=== PATIENT | male | born 1960 | race Caucasian/White ===

== ENCOUNTER → 2018-03-02 | Outpatient (CLI) | payer OTHER ==
[~2018-03-02] MED LIST: LIVALO4 MG PO; MINOCYCLINE
[2018-03-02 17:00] LABS: ABG HCO3 25 mmol/L (23-28); ABG PCO2 37 mmHg (41-51); ABG PH 7.44 (7.31-7.41); ABG PO2 79 mmHg (80-105)
== END ==
LOC: RESP 16:23
PROVIDERS: ATTEND Internal Medicine Interventional Cardiology
DX: R23.0 Cyanosis (principal)
CPT/HCPCS: 36415; 36600; 82805

== ENCOUNTER → 2018-11-04 | Outpatient (CLI) | payer OTHER ==
[~2018-11-04] MED LIST changes: +ASPIR 8181 MG PO; +CRESTOR10 MG; +CRESTOR20 MG PO; +EFFIENT10 MG PO; +IOPAMIDOL 370 MG/ML 200 ML INFUS..BTL INJ ONE; +METOPROLOL TART25 MG PO; +PLAVIX75 MG PO; +SODIUM CHLORIDE 0.9% 50ML 50 ML ONE; +TESTOSTERO200 MG/1 M; +VIAGRA100 MG
[2018-11-04 15:38] LABS: BLOOD UREA NITROGEN 10 mg/dL (7-26); BUN/CREATININE RATIO 13 (6-25); CREATININE, SERUM 0.77 mg/dL (0.72-1.25); EST GLOMERULAR FILTRATION RATE > 60 ML/MIN (60-)
--- NOTE | 2018-11-05 07:41 | Diagnostic Imaging Report ---
EXAM: CT Abdomen and Pelvis WITH contrast INDICATION: ^[id number] ^[id number] ^VENTRAL HERNIA COMPARISON: CT dated 08/24/2014 TECHNIQUE: Abdomen and pelvis were scanned utilizing a multidetector helical scanner from the lung base to the pubic symphysis after administration of IV contrast. Coronal and sagittal reformations were obtained. Dose modulation, iterative reconstruction, and/or weight based adjustment of the mA/kV was utilized to reduce the radiation dose to as low as reasonably achievable. Routine protocol was performed. Scan was performed when during portal venous phase. IV CONTRAST: 100 mL of Isovue-370 ORAL CONTRAST: Water COMPLICATIONS: None RADIATION DOSE: Total DLP: 727.97 mGy*cm Estimated effective dose: (DLP x 0.015 x size factor) mSv CTDIvol has been reviewed. It is below the limits set by the Radiation Protocol Committee (RPC). FINDINGS: LINES and TUBES: None. LOWER THORAX: Small left Bochdalek hernia, unchanged. HEPATOBILIARY: Again seen several hepatic hypodensities which are too small to characterize and have not significantly changed from prior CT in 2013, probably cysts. The largest is in left hepatic lobe measuring 1.2 cm. No biliary ductal dilation. GALLBLADDER: No radio-opaque stones or sludge. No wall thickening. SPLEEN: No splenomegaly. PANCREAS: No focal masses or ductal dilatation. ADRENALS: No adrenal nodules KIDNEYS/URETERS: Kidneys enhance symmetrically. No hydronephrosis. No cystic or solid mass lesions. Lobulated renal contours. No stones. GI TRACT: No abnormal distention, wall thickening, or evidence of bowel obstruction. Appendix is normal. Small hiatal hernia. PELVIC ORGANS/BLADDER: Prostate calcifications. Mild posterior wall bladder wall thickening which is unchanged since prior CT (series 2, image 79). LYMPH NODES: No lymphadenopathy. VESSELS: Unremarkable. PERITONEUM / RETROPERITONEUM: No free air or fluid. BONES: Unremarkable. SOFT TISSUES: Unremarkable. Mild diastasis of the rectus muscles without evidence of herniation. IMPRESSION: 1. No acute inflammatory process in the abdomen/pelvis. 2. No evidence of ventral hernia. 3. Redemonstration of several hepatic hypodensities which are too small to characterize and are probably cysts since they have been relatively stable since 2014. If clinically indicated, this can be confirmed with right upper quadrant ultrasound. Signed by: Dr. Kwame Butler MD on 11/05/2018 7:37 AM
== END ==
LOC: CT 14:34
PROVIDERS: ATTEND Family Medicine
DX: K43.9 Ventral hernia without obstruction or gangrene (principal)
CPT/HCPCS: 36415; 74177; 82565; 84520; Q9967

== ENCOUNTER 2018-11-29 10:35 | Inpatient (IN) | payer OTHER ==
[~2018-11-29] VITALS: Ht 172.7 cm; Wt 96.6 kg
[2018-11-29] VITALS (8 sets, daily range): BP systolic 111–135; BP diastolic 85–96
[~2018-11-29 10:35] MED LIST changes: -IOPAMIDOL 370 MG/ML 200 ML INFUS..BTL INJ ONE; -SODIUM CHLORIDE 0.9% 50ML 50 ML ONE
--- NOTE | 2018-11-29 11:15 | NUR ---
X-RAY AT BEDSIDE FOR CXR.
--- NOTE | 2018-11-29 11:25 | NUR ---
DR. NORTON HERE TO CLARIBEL PT.
--- NOTE | 2018-11-29 11:33 | Diagnostic Imaging Report ---
Examination: Single AP view of the chest. COMPARISON: 04/24/2018 INDICATION: Chest pain DISCUSSION: The lungs are well-inflated. No focal airspace consolidation, pleural effusion, or pneumothorax. Stable enlargement of the cardiomediastinal silhouette, accentuated by AP technique. No pulmonary edema. No acute osseous abnormality. IMPRESSION: No acute cardiopulmonary abnormality. Stable enlargement of the cardiac silhouette without vascular decompensation. Signed by: Dr. Jacoby Dickens M.D. on 11/29/2018 11:30 AM
[2018-11-29 11:43] LABS: BASOPHILS % 0.6 % (0.0-1.0); EOSINOPHILS # (AUTO) 0.2 (0.0-0.4); EOSINOPHILS % 2.8 % (0.0-6.0); HEMATOCRIT 51.9 % (38.2-49.6); HEMOGLOBIN 17.2 g/dL (14.0-18.0); LYMPHOCYTES # (AUTO) 1.3 (1.0-3.2); LYMPHOCYTES % 19.1 % (18.0-39.1); MEAN CORPUSCULAR HEMOGLOBIN 29.3 pg (28-32); MEAN CORPUSCULAR HGB CONC 33.1 g/dL (31-35); MEAN CORPUSCULAR VOLUME 88.3 fL (81-99); MONOCYTES # (AUTO) 0.7 (0.2-0.8); MONOCYTES % 10.7 % (4.4-11.3); NEUTROPHILS # (AUTO) 4.6 (2.1-6.9); NEUTROPHILS % 66.4 % (38.7-80.0); PLATELET COUNT 212 x10e3/uL (140-360); RED BLOOD COUNT 5.88 x10e6/uL (4.3-5.7); RED CELL DISTRIBUTION WIDTH 13.2 % (11.7-14.4)
[2018-11-29] MEDS ORDERED: NIFEDIPINE 10 MG CAP PO STA (11:49)
[2018-11-29 12:02] LABS: ALANINE AMINOTRANSFERASE 21 IU/L (0-55); ALBUMIN 3.7 g/dL (3.5-5.0); ALBUMIN/GLOBULIN RATIO 1.4 (0.8-2.0); ALKALINE PHOSPHATASE 59 IU/L (40-150); BLOOD UREA NITROGEN 15 mg/dL (7-26); BUN/CREATININE RATIO 12 (6-25); CALCIUM 8.6 mg/dL (8.4-10.2); CARBON DIOXIDE 22 mmol/L (22-29); CHLORIDE 107 mmol/L (98-107); CREATINE KINASE 369 IU/L (30-200); CREATININE, SERUM 1.23 mg/dL (0.72-1.25); EST GLOMERULAR FILTRATION RATE > 60 ML/MIN (60-); GLUCOSE 97 mg/dL (74-118); SODIUM 137 mmol/L (136-145)
[2018-11-29 12:11] LABS: INR 0.9
[2018-11-29] MEDS ORDERED: SODIUM CHLORIDE FLUSH 10 ML SYR INJ PRN (12:15)
[2018-11-29] MEDS ORDERED: ASPIRIN 81 MG CHEW TAB PO ONE (12:15)
[2018-11-29] MEDS ORDERED: NITROGLYCERIN 0.4 MG SUBL SL PRN (12:15)
[2018-11-29] MEDS: SODIUM CHLORIDE 0.9% 1000ML 1,000 ML IV SCH ×2 (12:22→21:49)
--- NOTE | 2018-11-29 12:25 | NUR ---
CONSENT FORM COMPLETED AND ATTATCHED TO CHART; CORK MOLDER AT BEDSIDE TO PREP PT AT THIS TIME.
--- NOTE | 2018-11-29 13:30 | Diagnostic Imaging Report ---
EXAMINATION: CT scan of the chest with contrast. TECHNIQUE: Spiral CT images of the chest were performed from the lung apices to the level of the adrenal glands after the intravenous administration of 100 cc of Isovue-370. Coronal and sagittal reformatted images were obtained. COMPARISON: Chest radiograph same day CLINICAL HISTORY:Chest and neck pain, questionable facial swelling, concern for venous obstruction DISCUSSION: LINES/TUBES: None. LUNGS AND AIRWAYS: 2 mm nodule along the right minor fissure. Minimal reticular opacity in the dependent portions of the lower lobes compatible with subsegmental atelectasis. Lungs are otherwise clear. No consolidations, bronchiectasis, or fibrosis. Trachea, mainstem bronchi, and central lobar and segmental bronchi are patent without filling defect. PLEURA: No pneumothorax or pleural effusions. HEART AND MEDIASTINUM: Visualized portions of the thyroid gland are normal There is no ectasia or aneurysmal dilatation of the thoracic aorta. Great vessel origins are patent and of normal caliber and configuration. Of note, the bilateral subclavian and axillary arteries are patent to the extent included on the scan field. Evaluation of the right subclavian vein is limited secondary to extensive beam hardening artifact from its lateral upper extremity contrast infusion. The left subclavian vein and brachiocephalic vein are widely patent. The pulmonary outflow tract is of normal caliber. This study was not optimized for detection of pulmonary embolic disease; however, no filling defects within the main pulmonary artery, right and left pulmonary arteries, and their lobar branches. Left anterior descending coronary artery stents. The superior vena cava is widely patent. No axillary, hilar, or mediastinal lymphadenopathy. LYMPH NODES: No axillary, hilar, or mediastinal lymphadenopathy. Prominent epicardial fat. ABDOMEN: There are multiple hypoattenuating circular lesions in the liver, the largest of which lies in segment 2 and measures 1.2 cm. Average internal attenuation is 15 Hounsfield units compatible with a simple cyst. Remaining lesions are too small to further characterize though statistically likely represent additional small cysts. The visualized portions of the spleen, pancreas, and adrenal glands are unremarkable. Small lipoma in the left diaphragmatic wilfrid. BONES AND SOFT TISSUES: No acute osseous abnormalities. No osseous destructive lesions. Mild bilateral gynecomastia. Otherwise no focal soft tissue abnormalities IMPRESSION: No acute thoracic CT abnormalities. No evidence of thoracic venous obstruction or significant great vessel arterial stenosis. 2 mm nodule along the right minor fissure may represent an intrapulmonary lymph node. Follow-up CT scan of the chest without contrast may be obtained in one year if the patient is at high risk of malignancy per Fleischner Society 2017 guidelines. Signed by: Dr. Jacoby Dickens M.D. on 11/29/2018 1:26 PM
--- NOTE | 2018-11-29 13:30 | NUR ---
ECHO AT BEDSIDE AT THIS TIME
--- NOTE | 2018-11-29 14:05 | NUR ---
PT UPDATED ON PLAN OF CARE, VERBALIZED UNDERSTANDING, NO DISTRESS NOTED AT THIS TIME.
[2018-11-29] MEDS ORDERED: IOPAMIDOL 370 MG/ML 200 ML INFUS..BTL INJ ONE ×2 (14:47→16:21)
[2018-11-29] MEDS ORDERED: SODIUM CHLORIDE 0.9% 50ML 50 ML ONE (14:47)
[2018-11-29] MEDS ORDERED: HEPARIN SOD (PORCINE) 1000 UNIT/ML 30ML ONE (16:20)
[2018-11-29] MEDS ORDERED: VERAPAMIL HCL 2.5 MG/ML 2 ML VIAL ONE (16:20)
[2018-11-29] MEDS ORDERED: NITROGLYCERIN/D5W 200 MCG/ML 250 ML ONE (16:21)
[2018-11-29] MEDS ORDERED: HEPARIN SOD/SOD CHLORIDE 2,000 ML ONE (16:21)
[2018-11-29] MEDS ORDERED: FENTANYL CITRATE/PF 100MCG/2 ML INJ ONE (16:21)
[2018-11-29] MEDS ORDERED: LIDOCAINE HCL 1% LOCAL INJ 20 ML VIAL ONE (16:21)
[2018-11-29] MEDS ORDERED: MIDAZOLAM HCL 2 MG/2 ML VIAL ONE ×3 (16:21→16:44)
--- NOTE | 2018-11-29 16:28 | NUR ---
REPORT GIVEN TO SERGIO SILVA COSMETOLOGY INSTRUCTOR NURSE, PT IS EN ROUTE TO COSMETOLOGY INSTRUCTOR AT THIS TIME; V/S/S CURRENTLY.
--- NOTE | 2018-11-29 17:03 | NUR ---
Received patient s/p C. Vital signs stable. TR Band noted to right radial. No hematoma or bleeding present. Patient awaiting removal of TR band prior to transfer to floor. at bedside. Food tray ordered.
--- NOTE | 2018-11-29 17:10 | NUR ---
Patient c/o pain to neck. Patient rates pain at "6" on a scale of 0-10. Medicated patient with morphine 4mh IV as ordered.
[2018-11-29] MEDS ORDERED: MORPHINE SULFATE INJ 4 MG/ML INJ ONE (17:21)
--- NOTE | 2018-11-29 17:25 | NUR ---
Patient mnow rates pain at "3" on a scale of 0-10.
--- NOTE | 2018-11-29 17:43 | NUR ---
Removed 3cc's of air from right wrist TR band. No bleeding or hematoma noted. Vital signs stable.
--- NOTE | 2018-11-29 17:57 | NUR ---
Removed 3 cc's of air from right wrist TR Band. No bleeding or hematoma noted. Vitals stable.
--- NOTE | 2018-11-29 18:10 | NUR ---
Remainder of air removed from right radial TR Band. Sterile dressing applied. No bleeding or hematoma noted. Patient awaiting transport to room.
--- NOTE | 2018-11-29 18:24 | NUR ---
report received from Berna. Patient arrived on floor via wheelchair. Alert and oriented and in no distress. Call peralta within reach and bed in lowest position.
--- NOTE | 2018-11-29 18:24 | NUR ---
Report called to SERGIO Flores. Patient to admit to room 186. Patient transported to floor via stretcher.
--- NOTE | 2018-11-29 18:55 | NUR ---
report given to city weighmaster nurse, patient aware of change. Patient in no distress and call peralta within reach.
[2018-11-29 20:09] LABS: CREATINE KINASE MB 2.8 ng/mL (0-5.0)
[2018-11-29] MEDS ORDERED: HYDROCODONE/APAP 7.5MG-325MG 1 EA TAB PO PRN (22:00)
[2018-11-30] VITALS: BP 128/77
[2018-11-30 04:00] VITALS: BP 135/85
[2018-11-30 05:35] LABS: CREATINE KINASE MB 2.1 ng/mL (0-5.0)
[2018-11-30 06:21] LABS: CHOL/HDL RATIO 4.7 (3.9-4.7)
[2018-11-30] MEDS: SODIUM CHLORIDE 0.9% 1000ML 1,000 ML IV SCH (08:00)
[2018-11-30 08:44] VITALS: BP 133/92
--- NOTE | 2018-11-30 08:53 | NUR ---
SOCIAL WORK INITIAL ASSESSMENT Bone Char Puller to bedside to discuss plan of care with patient/family. CM/SW role and care transitions discussed. Anticipated discharge plan discussed along with duration of care. CM/SW discussed patients right to make decisions in care. CM/SW work hours given. Patient lives: IN OWN HOUSE WITH FAMILY Admit/Transfer: VIA ED FROM HOME POA/Emergency contact: ABIMAEL [phone] Current/Previous Home Health: NONE PCP/Follow-up Care: [facility] Current/Previous DME: NONE Other Services: NONE Employment Status: NONE Areas of Concerns: NONE Referral Needs: NONE Education Needs: NONE IMM/RAMOS given and signed (if applicable): NONE Goal for discharge: RETURN HOME INDEPENDENTLY CM/SW left business card at the bedside with contact information. Name and number was also written on the patients whiteboard. Patient verbalized understanding of discussion. CM will follow-up with ongoing discharge and transition of care needs.
[2018-11-30 09:47] VITALS: BP 133/92
[2018-11-30 12:00] VITALS: BP 146/98
--- NOTE | 2018-11-30 12:21 | Diagnostic Imaging Report ---
History: Neck and bilateral jaw pain Comparison studies: None Technique: Sagittal T1, T2 and IR, axial T2, T1 and axial gradient echo Intravenous contrast: None Findings: Alignment: Straightened cervical curvature No scoliosis. Cervicomedullary junction: No abnormalities. Patent foramen magnum. Soft tissues: No T2 hyperintense inflammatory changes. Spinal cord: Normal in size and signal from the foramen magnum through T1. Vertebrae: No fractures, infection or neoplasm. Degenerative changes: C2-C3: Patent canal and foramina. No disc herniation. C3-C4: Patent canal. No disc herniation. Mild right foraminal stenosis due to uncovertebral arthrosis. C4-C5: Mildly degenerated disc. Small asymmetric right disc osteophyte complex and uncovertebral arthrosis and mild/moderate right and mild left left foraminal stenosis. C5-C6: Mildly degenerated disc. Small disc osteophyte complex and uncovertebral arthrosis with moderate left and mild right foraminal stenosis. C6-C7: Mildly degenerated disc. Asymmetric left disc osteophyte complex and uncovertebral arthrosis with severe left foraminal stenosis, moderate right foraminal stenosis and mild canal stenosis. C7-T1: Patent canal and foramina. No disc herniation. Incidental findings: Circumscribed 8 mm T2 hyperintensity which extends from the uvula, possibly retention cyst or secretions which could be correlated with direct visualization. Included flow voids of the carotid and vertebral arteries are maintained. IMPRESSION: 1. Mild multilevel disc degeneration. 2. Mild degenerative canal stenosis at C6-C7. 3. Multilevel degenerative foraminal stenosis (mild/moderate right at C4-C5, moderate left at C5-C6 and severe left and moderate right at C6-C7). Signed by: Dr. Jacoby Chua M.D. on 11/30/2018 12:17 PM
--- NOTE | 2018-11-30 13:41 | NUR ---
patient refusing to put heart monitor back on. Dr Miller paged to give MRI results. awaiting return call for discharge order.
--- NOTE | 2018-11-30 14:12 | Operative Report ---
DATE OF PROCEDURE: November 29, 2018 INDICATIONS: Coronary artery disease, unstable angina/loa-ZF-pqkiltl elevation myocardial infarction. PROCEDURES PERFORMED 1. Left heart catheterization. 2. Selective coronary angiography. 3. Left ventriculography. 4. Deployment of right wrist transradial band. COMPLICATIONS: None. RECOMMENDATIONS: Medical therapy. Access obtained in the right radial artery. A 5-Hebrew sheath was placed. Diagnostic coronary angiogram revealed a widely patent stent in the left anterior descending artery. Remaining vessel had mild disease. Obtuse marginal 50% lesions in both obtuse margin branches. Mild coronary artery disease in the right coronary artery. LV ejection fraction 70%. LV end-diastolic pressure of 10. No gradient across the aortic valve on pullback. No intervention was deemed necessary. Guide sheath removed. TR band applied. Patient observed in the hospital overnight. Job#: [id number] ASHIA
--- NOTE | 2018-12-02 10:09 | Consultation ---
DATE OF CONSULTATION: November 29, 2018 CARDIAC CONSULTATION REASON FOR CONSULTATION: Chest pain. Mr. Kapadia is a 57-year-old gentleman with a history of coronary artery disease, status post LAD stent placement last year. He had complete relief of his anginal symptoms following stent placement. However, this morning he continues he woke up with chest pain and continued to have persistent pain all morning. EKG shows subtle S/T changes. Chest x-ray is normal. Treadmill stress test in the office was consistent with ischemia. PAST MEDICAL HISTORY: Coronary artery disease, hypertension, hyperlipidemia. SOCIAL HISTORY: Patient does not smoke or drink drug. ALLERGIES: INCLUDE LACTULOSE. REVIEW OF SYSTEMS: Is negative except as dictated in the history of present illness. PHYSICAL EXAMINATION VITALS: Afebrile, heart rate 91, blood pressure 144/106, O2 sats 97%. CARDIOVASCULAR: Regular rhythm. A S4 gallop. No murmurs. LUNGS: Clear to auscultation bilaterally. ABDOMEN: Soft. EXTREMITIES: Pedal pulses are 2+. Chemistries including cardiac enzymes are pending. Hemoglobin is 17.2. Chest x-ray shows no acute abnormalities. EKG and stress test was reviewed. ASSESSMENT: Kaj-IQ-gojommy elevation myocardial infarction. RECOMMENDATIONS: Left heart catheterization, coronary angiography, as well as possible percutaneous coronary intervention to be performed. Risks, benefits and alternatives of the procedure have been discussed with the patient. He is agreeable for the same. He will also need imaging for thoracic outlet syndrome. This also was discussed with the patient. I thank Dr. Newell for this consultation. Job#: [id number] MA
== END 2018-11-30 14:39 | disposition home or self-care (01) | DRG 282 ==
LOC: ER 10:35 → ERHOLD 12:41 → IMCU 18:12
PROVIDERS: ADMIT Internal Medicine Interventional Cardiology; ATTEND Internal Medicine Interventional Cardiology
PROC: 4A023N7 Measurement of Cardiac Sampling and Pressure, Left Heart, Percutaneous Approach (ICD-10-PCS; principal; 2018-11-29)
PROC: B2111ZZ Fluoroscopy of Multiple Coronary Arteries using Low Osmolar Contrast (ICD-10-PCS; 2018-11-29)
PROC: B2151ZZ Fluoroscopy of Left Heart using Low Osmolar Contrast (ICD-10-PCS; 2018-11-29)
DX: I21.4 Non-ST elevation (NSTEMI) myocardial infarction (principal); I25.110 Atherosclerotic heart disease of native coronary artery with unstable angina pectoris; Z95.5 Presence of coronary angioplasty implant and graft; E78.5 Hyperlipidemia, unspecified
CPT/HCPCS: 36415; 71045; 71260; 72141; 80053; 80061; 82550; 82553; 84484; 85025; 85610; 85730; 93005; 93306; 93458; 99285; C1887; J1644; J2001; J2250; J2270; J7030; Q9967

== ENCOUNTER → 2020-09-24 | Day surgery (SDC) | payer OTHER, SELFPAY ==
[~2020-09-24] MED LIST changes: +ARMOUR THYROID60 MG PO; +FENTANYL CITRATE/PF 100MCG/2 ML INJ ONE; +HYOSCYAMINE 0.125 MG TAB ONE; +LIDOCAINE HCL 2% LOCAL INJ 5 ML SDV VIAL INJ ONE; +MIDAZOLAM HCL 2 MG/2 ML VIAL ONE; +PROPOFOL IV EMULSION 10 MG/ML 20 ML VIAL ONE; +ZETIA10 MG PO
[2020-09-24 10:33] LABS: BASOPHILS # (AUTO) 0.1 (0.0-0.1); BASOPHILS % 0.7 % (0.0-1.0); EOSINOPHILS # (AUTO) 0.1 (0.0-0.4); HEMATOCRIT 53.6 % (38.2-49.6); HEMOGLOBIN 17.2 g/dL (14.0-18.0); LYMPHOCYTES # (AUTO) 1.4 (1.0-3.2); LYMPHOCYTES % 19.9 % (18.0-39.1); MEAN CORPUSCULAR HEMOGLOBIN 27.7 pg (28-32); MEAN CORPUSCULAR HGB CONC 32.1 g/dL (31-35); MEAN CORPUSCULAR VOLUME 86.2 fL (81-99); MONOCYTES # (AUTO) 0.9 (0.2-0.8); MONOCYTES % 12.2 % (4.4-11.3); NEUTROPHILS # (AUTO) 4.5 (2.1-6.9); NEUTROPHILS % 64.8 % (38.7-80.0); PLATELET COUNT 208 x10e3/uL (140-360); RED BLOOD COUNT 6.22 x10e6/uL (4.3-5.7); RED CELL DISTRIBUTION WIDTH 13.7 % (11.7-14.4)
== END | disposition home or self-care (01) ==
LOC: OR 09:37
PROVIDERS: ATTEND Internal Medicine Gastroenterology
DX: K21.00 Gastro-esophageal reflux disease with esophagitis, without bleeding (principal); K44.9 Diaphragmatic hernia without obstruction or gangrene; K21.9 Gastro-esophageal reflux disease without esophagitis; E78.5 Hyperlipidemia, unspecified; I25.10 Atherosclerotic heart disease of native coronary artery without angina pectoris; Z91.018 Allergy to other foods; Z01.812 Encounter for preprocedural laboratory examination; Z20.828 Contact with and (suspected) exposure to other viral communicable diseases; K20.80 Other esophagitis without bleeding; K29.70 Gastritis, unspecified, without bleeding; K29.80 Duodenitis without bleeding
CPT/HCPCS: 36415; 43239; 85025; J2001; J2250; J2704; J3010; U0002; 43235; 45378; 45380; 45384; 45385

== ENCOUNTER 2020-12-08 03:40 | Observation (INO) | payer OTHER ==
[~2020-12-08] VITALS: Ht 172.7 cm; Wt 86.2 kg
[~2020-12-08 03:40] MED LIST changes: -FENTANYL CITRATE/PF 100MCG/2 ML INJ ONE; -HYOSCYAMINE 0.125 MG TAB ONE; -LIDOCAINE HCL 2% LOCAL INJ 5 ML SDV VIAL INJ ONE; -MIDAZOLAM HCL 2 MG/2 ML VIAL ONE; -PROPOFOL IV EMULSION 10 MG/ML 20 ML VIAL ONE; -TESTOSTERO200 MG/1 M; +TESTOSTERO200 MG/1 M IM
[2020-12-08] MEDS ORDERED: MORPHINE SULFATE INJ 4 MG/ML INJ 1ML IV STA (04:27)
[2020-12-08] MEDS ORDERED: ONDANSETRON HCL INJ 2MG/ML 2ML 2 MG/ML VIAL IV STA (04:27)
[2020-12-08 04:36] LABS: BASOPHILS # (AUTO) 0.1 (0.0-0.1); BASOPHILS % 0.6 % (0.0-1.0); EOSINOPHILS # (AUTO) 0.2 (0.0-0.4); EOSINOPHILS % 2.6 % (0.0-6.0); HEMATOCRIT 44.5 % (38.2-49.6); HEMOGLOBIN 14.3 g/dL (14.0-18.0); LYMPHOCYTES # (AUTO) 1.4 (1.0-3.2); LYMPHOCYTES % 16.6 % (18.0-39.1); MEAN CORPUSCULAR HEMOGLOBIN 28.7 pg (28-32); MEAN CORPUSCULAR HGB CONC 32.1 g/dL (31-35); MEAN CORPUSCULAR VOLUME 89.2 fL (81-99); MONOCYTES # (AUTO) 0.7 (0.2-0.8); MONOCYTES % 7.9 % (4.4-11.3); NEUTROPHILS # (AUTO) 6.2 (2.1-6.9); PLATELET COUNT 166 x10e3/uL (140-360); RED BLOOD COUNT 4.99 x10e6/uL (4.3-5.7); RED CELL DISTRIBUTION WIDTH 16.8 % (11.7-14.4)
[2020-12-08 04:42] LABS: INR 0.89; PROTHROMBIN TIME 12.6 seconds (11.9-14.5)
[2020-12-08 04:43] LABS: PARTIAL THROMBOPLASTIN TIME 27.9 seconds (23.8-35.5)
[2020-12-08 04:51] LABS: ALANINE AMINOTRANSFERASE 20 IU/L (0-55); ALBUMIN 3.5 g/dL (3.5-5.0); ALBUMIN/GLOBULIN RATIO 1.1 (0.8-2.0); ALKALINE PHOSPHATASE 67 IU/L (40-150); ANION GAP 14.6 mmol/L (8-16); BLOOD UREA NITROGEN 15 mg/dL (7-26); BUN/CREATININE RATIO 14 (6-25); CARBON DIOXIDE 25 mmol/L (22-29); CHLORIDE 105 mmol/L (98-107); CREATINE KINASE 63 IU/L (30-200); CREATININE, SERUM 1.05 mg/dL (0.72-1.25); EST GLOMERULAR FILTRATION RATE > 60 ML/MIN (60-); GLUCOSE 119 mg/dL (74-118); POTASSIUM 3.6 mmol/L (3.5-5.1); SODIUM 141 mmol/L (136-145)
[2020-12-08] MEDS ORDERED: ASPIRIN 81 MG CHEW TAB PO ONE (05:15)
[2020-12-08] MEDS ORDERED: SODIUM CHLORIDE 0.9% 50ML 0 ML ONE (05:21)
[2020-12-08] MEDS ORDERED: IOPAMIDOL 370 MG/ML 200 ML INFUS..BTL INJ ONE (05:22)
[2020-12-08] MEDS ORDERED: SODIUM CHLORIDE 0.9% 100 ML ONE (05:24)
[2020-12-08 13:12] LABS: CREATINE KINASE MB 0.8 ng/mL (0-5.0)
[2020-12-08] MEDS ORDERED: METOPROLOL SUCC25 MG PO (16:07)
[2020-12-08 20:00] VITALS: BP 108/73
[2020-12-08 21:00] VITALS: BP 108/73
[2020-12-08] MEDS ORDERED: METOPROLOL SUCCINATE 25 MG TAB XL PO SCH (21:00)
[2020-12-08 23:58] LABS: CREATINE KINASE 47 IU/L (30-200)
[2020-12-09] VITALS: BP 99/72
[2020-12-09 04:00] VITALS: BP 97/67
[2020-12-09 06:01] LABS: BASOPHILS # (AUTO) 0.1 (0.0-0.1); BASOPHILS % 0.8 % (0.0-1.0); EOSINOPHILS # (AUTO) 0.3 (0.0-0.4); EOSINOPHILS % 4.1 % (0.0-6.0); HEMATOCRIT 44.5 % (38.2-49.6); HEMOGLOBIN 14.3 g/dL (14.0-18.0); LYMPHOCYTES # (AUTO) 1.5 (1.0-3.2); LYMPHOCYTES % 24.1 % (18.0-39.1); MEAN CORPUSCULAR HEMOGLOBIN 29.2 pg (28-32); MEAN CORPUSCULAR HGB CONC 32.1 g/dL (31-35); MONOCYTES # (AUTO) 0.6 (0.2-0.8); NEUTROPHILS # (AUTO) 3.7 (2.1-6.9); NEUTROPHILS % 60.3 % (38.7-80.0); PLATELET COUNT 130 x10e3/uL (140-360); RED BLOOD COUNT 4.89 x10e6/uL (4.3-5.7); RED CELL DISTRIBUTION WIDTH 16.8 % (11.7-14.4)
[2020-12-09 06:29] LABS: ALANINE AMINOTRANSFERASE 16 IU/L (0-55); ALBUMIN 3.2 g/dL (3.5-5.0); ALBUMIN/GLOBULIN RATIO 1.1 (0.8-2.0); ALKALINE PHOSPHATASE 58 IU/L (40-150); ANION GAP 15.2 mmol/L (8-16); BLOOD UREA NITROGEN 14 mg/dL (7-26); BUN/CREATININE RATIO 15 (6-25); CALCIUM 8.6 mg/dL (8.4-10.2); CARBON DIOXIDE 21 mmol/L (22-29); CHLORIDE 109 mmol/L (98-107); CREATININE, SERUM 0.91 mg/dL (0.72-1.25); EST GLOMERULAR FILTRATION RATE > 60 ML/MIN (60-); GLUCOSE 88 mg/dL (74-118); POTASSIUM 4.2 mmol/L (3.5-5.1); SODIUM 141 mmol/L (136-145)
[2020-12-09] MEDS ORDERED: METOPROLOL SUCC25 MG PO (07:25)
[2020-12-09 07:54] VITALS: BP 105/73
[2020-12-09 08:14] VITALS: BP 105/73
[2020-12-09] MEDS ORDERED: ASPIRIN 81 MG CHEW TAB PO SCH (09:00)
[2020-12-09] MEDS ORDERED: EZETIMIBE 10 MG TAB PO SCH (09:00)
[2020-12-09 10:08] LABS: CREATINE KINASE MB 0.7 ng/mL (0-5.0)
[2020-12-09 11:54] VITALS: BP 111/70
[2020-12-09 15:58] VITALS: BP 109/77
== END 2020-12-09 16:59 | disposition home or self-care (01) ==
LOC: ER 04:37 → ERHOLD 05:13 → MED/SURG2 17:19
PROVIDERS: ADMIT Internal Medicine; ATTEND Internal Medicine
DX: R07.9 Chest pain, unspecified (principal); I25.10 Atherosclerotic heart disease of native coronary artery without angina pectoris; I10 Essential (primary) hypertension; E78.5 Hyperlipidemia, unspecified; U07.1 COVID-19; K21.9 Gastro-esophageal reflux disease without esophagitis; J98.11 Atelectasis; K80.20 Calculus of gallbladder without cholecystitis without obstruction; K76.0 Fatty (change of) liver, not elsewhere classified; Z88.8 Allergy status to other drugs, medicaments and biological substances; Z91.018 Allergy to other foods; Z79.82 Long term (current) use of aspirin; Z95.5 Presence of coronary angioplasty implant and graft; Z87.01 Personal history of pneumonia (recurrent); Z82.49 Family history of ischemic heart disease and other diseases of the circulatory system
CPT/HCPCS: 36415 ×2; 71045; 71275; 72070; 76705; 80053 ×2; 82150; 82550 ×2; 82553 ×2; 83690; 84443; 84484 ×2; 85025 ×2; 85379; 85610; 85730; 93005; 99284; G0378 ×2; J2270; J2405; J7050; Q9967; U0002 ×2

== ENCOUNTER → 2020-12-23 | Day surgery (SDC) | payer OTHER ==
[~2020-12-23] MED LIST changes: +BUPIVACAINE 0.25% 30ML SDV ONE; +FENTANYL CITRATE/PF 100MCG/2 ML INJ ONE; +HYDROCODONE/APAP 7.5MG-325MG 1 EA TAB ONE; +HYDROMORPHONE 2MG/ML 2 MG/ML ML ONE; +METOPROLOL SUCC25 MG PO; +MIDAZOLAM HCL 2 MG/2 ML VIAL ONE
[2020-12-23 13:20] VITALS: BP 128/80
== END | disposition home or self-care (01) ==
LOC: OR 06:51
PROVIDERS: ATTEND Surgery
DX: K80.00 Calculus of gallbladder with acute cholecystitis without obstruction (principal); K82.8 Other specified diseases of gallbladder; I25.10 Atherosclerotic heart disease of native coronary artery without angina pectoris; E78.5 Hyperlipidemia, unspecified; Z91.018 Allergy to other foods; Z79.82 Long term (current) use of aspirin; Z95.5 Presence of coronary angioplasty implant and graft; Z85.828 Personal history of other malignant neoplasm of skin; Z86.16 Personal history of COVID-19
CPT/HCPCS: 47562; 88304; C1766; J1170; J2250; J3010

== ENCOUNTER 2025-02-15 11:35 | Emergency (ER) | payer OTHER ==
[~2025-02-15] VITALS: Ht 172.7 cm; Wt 86.2 kg
[2025-02-15 11:35] VITALS: TEMP 98.9
[~2025-02-15 11:35] MED LIST changes: -BUPIVACAINE 0.25% 30ML SDV ONE; -FENTANYL CITRATE/PF 100MCG/2 ML INJ ONE; -HYDROCODONE/APAP 7.5MG-325MG 1 EA TAB ONE; -HYDROMORPHONE 2MG/ML 2 MG/ML ML ONE; -MIDAZOLAM HCL 2 MG/2 ML VIAL ONE
[2025-02-15 12:17] LABS: BASOPHILS % 0.3 % (0.0-1.0); EOSINOPHILS # (AUTO) 0.1 (0.0-0.4); HEMATOCRIT 37.2 % (38.2-49.6); HEMOGLOBIN 11.2 g/dL (14.0-18.0); LYMPHOCYTES % 10.3 % (18.0-39.1); MEAN CORPUSCULAR HGB CONC 30.1 g/dL (31-35); MEAN CORPUSCULAR VOLUME 76.5 fL (81-99); MONOCYTES # (AUTO) 0.8 (0.2-0.8); MONOCYTES % 8.1 % (4.4-11.3); NEUTROPHILS # (AUTO) 7.4 (2.1-6.9); NEUTROPHILS % 79.9 % (38.7-80.0); PLATELET COUNT 187 x10e3/uL (140-360); RED BLOOD COUNT 4.86 x10e6/uL (4.3-5.7); RED CELL DISTRIBUTION WIDTH 16.9 % (11.7-14.4); WHITE BLOOD COUNT 9.25 x10e3/uL (4.8-10.8)
[2025-02-15 12:28] LABS: ANION GAP 14.1 mmol/L (8-16); CALCIUM 8.6 mg/dL (8.4-10.2); CREATININE, SERUM 1.48 mg/dL (0.72-1.25); POTASSIUM 4.1 mmol/L (3.5-5.1)
[2025-02-15 12:38] LABS: CORONAVIRUS COVID-19 AG NEGATIVE (NEGATIVE); INFLUENZA A AG NEGATIVE (NEGATIVE); INFLUENZA B AG NEGATIVE (NEGATIVE)
[2025-02-15] MEDS: SODIUM CHLORIDE 0.9% 1000ML 1,000 ML IV STA (13:07)
[2025-02-15] MEDS: KETOROLAC TROMETHAMINE 30 MG/ML VIAL IV STA (13:08)
[2025-02-15] MEDS: ONDANSETRON HCL INJ 2MG/ML 2ML 2 MG/ML VIAL IV STA (13:09)
[2025-02-15 13:31] VITALS: PULSE 82; RESP 19; O2SAT 95
[2025-02-15] MEDS ORDERED: AMOX TR-K CLV1 EAC2 PO (14:09)
[2025-02-15] MEDS ORDERED: ONDANSETRON ODT4 MG PO (14:09)
[2025-02-15] MEDS ORDERED: PREDNISONE20 MG PO (14:19)
[2025-02-15 14:21] LABS: TROPONIN I 0.088 ng/mL (0-0.300)
== END 2025-02-15 16:01 | disposition home or self-care (01) ==
LOC: ER 11:40
DX: R06.02 Shortness of breath (principal); R05.9 Cough, unspecified; E86.0 Dehydration; N28.9 Disorder of kidney and ureter, unspecified; J32.9 Chronic sinusitis, unspecified; E78.5 Hyperlipidemia, unspecified; I25.10 Atherosclerotic heart disease of native coronary artery without angina pectoris; K21.9 Gastro-esophageal reflux disease without esophagitis; M54.9 Dorsalgia, unspecified; G89.29 Other chronic pain; Z11.52 Encounter for screening for COVID-19; Z85.89 Personal history of malignant neoplasm of other organs and systems
CPT/HCPCS: 36415; 71046; 80048; 82550; 84484; 85025; 87428; 93005; 99284; J1885; J2405; J7030

== ENCOUNTER → 2025-07-06 | Day surgery (SDC) | payer OTHER ==
[2025-07-05 14:00] LABS: BASOPHILS % 0.6 % (0.0-1.0); EOSINOPHILS % 2.4 % (0.0-6.0); LYMPHOCYTES % 24.0 % (18.0-39.1); MONOCYTES % 11.0 % (4.4-11.3); NEUTROPHILS % 61.8 % (38.7-80.0); RED CELL DISTRIBUTION WIDTH 21.0 % (11.7-14.4)
[~2025-07-06] MED LIST changes: +AMOX TR-K CLV1 EAC2 PO; +GLUCAGON FOR INJ 1 MG VIAL ONE; +LIDOCAINE HCL 2% LOCAL INJ 5 ML SDV VIAL INJ ONE; +MIDAZOLAM HCL 2 MG/2 ML VIAL ONE; +MULTI-VITAMIN1 EACH PO; +ONDANSETRON ODT4 MG PO; +PREDNISONE20 MG PO; +PROPOFOL IV EMULSION 50 ML IV ONE
[2025-07-06] MEDS: LACTATED RINGER'S 1,000 ML ONE (15:11)
[2025-07-06 16:45] VITALS: TEMP 97
[2025-07-06 17:30] VITALS: BP 116/78; PULSE 62; RESP 16; O2SAT 100
== END | disposition home or self-care (01) ==
LOC: OR 14:48
PROVIDERS: ATTEND Internal Medicine Gastroenterology
DX: K22.89 Other specified disease of esophagus (principal); K44.9 Diaphragmatic hernia without obstruction or gangrene; K31.7 Polyp of stomach and duodenum; K57.30 Diverticulosis of large intestine without perforation or abscess without bleeding; K64.1 Second degree hemorrhoids; I10 Essential (primary) hypertension; D50.9 Iron deficiency anemia, unspecified; K21.9 Gastro-esophageal reflux disease without esophagitis; E78.5 Hyperlipidemia, unspecified; I25.10 Atherosclerotic heart disease of native coronary artery without angina pectoris; Z79.82 Long term (current) use of aspirin; Z79.899 Other long term (current) drug therapy; Z80.0 Family history of malignant neoplasm of digestive organs; Z68.30 Body mass index [BMI] 30.0-30.9, adult; Z01.810 Encounter for preprocedural cardiovascular examination; Z01.812 Encounter for preprocedural laboratory examination
CPT/HCPCS: 36415; 43239; 43251; 45378; 85025; 93005; J1610; J2003; J2250; J2704; J7121

== ENCOUNTER 2025-07-30 20:08 | Emergency (ER) | payer OTHER ==
[~2025-07-30] VITALS: Ht 172.7 cm; Wt 88.9 kg
[~2025-07-30 20:08] MED LIST changes: -GLUCAGON FOR INJ 1 MG VIAL ONE; -LIDOCAINE HCL 2% LOCAL INJ 5 ML SDV VIAL INJ ONE; -MIDAZOLAM HCL 2 MG/2 ML VIAL ONE; -PROPOFOL IV EMULSION 50 ML IV ONE
[2025-07-30 21:34] VITALS: PULSE 60; RESP 14; TEMP 98.4
[2025-07-30 21:43] VITALS: BP 116/80; PULSE 60; RESP 14; TEMP 98.4; O2SAT 100
[2025-07-30] MEDS ORDERED: CEFPODOXIME PR200 MG PO (21:46)
== END 2025-07-30 22:05 | disposition home or self-care (01) ==
LOC: ER 20:38
DX: R33.9 Retention of urine, unspecified (principal); E78.5 Hyperlipidemia, unspecified; E03.9 Hypothyroidism, unspecified; I25.10 Atherosclerotic heart disease of native coronary artery without angina pectoris; K21.9 Gastro-esophageal reflux disease without esophagitis; M19.09 Primary osteoarthritis, other specified site; M54.9 Dorsalgia, unspecified; G89.29 Other chronic pain
CPT/HCPCS: 51700; 87086; 99283